=== PATIENT | male | born 1980 | race Caucasian/White ===

== ENCOUNTER 2021-09-27 16:16 | Inpatient (IN) | payer MEDICAID ==
[~2021-09-27] VITALS: Ht 167.6 cm; Wt 117.7 kg
[~2021-09-27 16:16] MED LIST: DIVA-112 PO; DSS100 PO; FISH1 PO; HALO10TA20 PO; LACT30L PO; LEVO50 PO; LITH300C3 PO; OLAN10TA74 PO; OMEP20 PO; OXCA300T57 PO
[2021-09-27] MEDS ORDERED: LITH300T29 PO (17:42)
[2021-09-27] MEDS ORDERED: OLAN10TA26 PO (17:42)
[2021-09-27] MEDS ORDERED: METF-1211 PO (17:42)
[2021-09-27] MEDS ORDERED: LEVO125 PO (17:42)
[2021-09-27] MEDS ORDERED: OXCA300T57 PO (17:42)
[2021-09-27] MEDS ORDERED: BUSP10TA23 PO (17:42)
[2021-09-27] MEDS ORDERED: FENO48TA20 PO (17:42)
[2021-09-27] MEDS ORDERED: DOCU-270 PO (17:48)
[2021-09-27 21:16] VITALS: BP 132/90
[2021-09-27] MEDS ORDERED: PNEUMOCOCCAL VACCINE POLYVALENT 0.5 ML VIAL [PPSV23] IM. ONE (22:00)
[2021-09-27] MEDS ORDERED: INFLUENZA VIRUS VACCINE QVS 2021-22 (6MO+)/PF 60 MCG/0.5 ML SYRINGE IM. ONE (22:00)
[2021-09-28 05:56] VITALS: BP 126/80
[2021-09-28] MEDS: LORazepam 2 MG TABLET PO PRN ×3 (08:16→20:30)
[2021-09-28] MEDS: HALOPERIDOL 5 MG TABLET PO PRN ×2 (08:16→16:28)
[2021-09-28 09:34] VITALS: BP 135/65
[2021-09-28] MEDS: LITHIUM CARBONATE 300 MG CAPSULE PO SCH ×2 (11:14→16:27)
[2021-09-28] MEDS: DIVALPROEX SODIUM 500 MG DR TABLET PO SCH ×2 (11:14→16:27)
[2021-09-28] MEDS ORDERED: HALOPERIDOL LACTATE 5 MG/ML VIAL ONE (11:26)
[2021-09-28] MEDS ORDERED: LORazepam 2 MG/ML VIAL ONE (11:26)
[2021-09-28] MEDS ORDERED: DiphenhydrAMINE HCL 50 MG/ML VIAL ONE (11:26)
[2021-09-28] MEDS ORDERED: HALOPERIDOL LACTATE 5 MG/ML VIAL IM ONE (11:30)
[2021-09-28] MEDS ORDERED: DiphenhydrAMINE HCL 50 MG/ML VIAL IM ONE (11:30)
[2021-09-28] MEDS ORDERED: LORazepam 2 MG/ML VIAL IM ONE (11:30)
[2021-09-28 16:29] VITALS: BP 124/69
[2021-09-28] MEDS ORDERED: CloNIDine HCL 0.1 MG TABLET PO PRN (18:30)
[2021-09-28] MEDS ORDERED: DOCUSATE SODIUM 100 MG CAPSULE PO PRN (18:30)
[2021-09-28] MEDS ORDERED: PETROLATUM,WHITE 28 GM JELLY TP PRN (18:30)
[2021-09-28] MEDS ORDERED: NICOTINE 14 MG/24 HOUR PATCH TD PRN (18:30)
[2021-09-28] MEDS ORDERED: MAG HYDROX/AL HYDROX/SIMETH ES 30 ML SUSPENSION UDCUP PO PRN (18:30)
[2021-09-28] MEDS ORDERED: GuaiFENesin/D-METHORPHAN [SUGAR-FREE] 200-20MG/10 ML SYRUP UDCUP PO PRN (18:30)
[2021-09-28] MEDS ORDERED: MAGNESIUM HYDROXIDE SUSPENSION 30 ML UDCUP PO PRN (18:30)
[2021-09-28] MEDS ORDERED: ONDANSETRON HCL 4 MG TABLET PO PRN (18:30)
[2021-09-28] MEDS ORDERED: ACETAMINOPHEN 325 MG TABLET PO PRN (18:30)
[2021-09-28] MEDS ORDERED: LOPERAMIDE HCL 2 MG CAPSULE PO PRN (18:30)
[2021-09-28] MEDS ORDERED: ALBUTEROL SULFATE HFA 90 MCG/PUFF 8 GM INHALER IH PRN (18:30)
[2021-09-28] MEDS ORDERED: IBUPROFEN 400 MG TABLET PO PRN (18:30)
[2021-09-28] MEDS: LACTULOSE 20 GM/30 ML SOLUTION UDCUP PO SCH (20:18)
[2021-09-28] MEDS: HALOPERIDOL 5 MG TABLET PO SCH (20:18)
[2021-09-28] MEDS: ZOLPIDEM TARTRATE 10 MG TABLET PO PRN (20:19)
[2021-09-29 04:42] VITALS: BP 139/77
[2021-09-29] MEDS: LEVOTHYROXINE SODIUM 125 MCG TABLET PO SCH (06:30)
[2021-09-29] MEDS: MetFORMIN HCL 500 MG TABLET PO SCH ×2 (07:05→16:23)
[2021-09-29 08:09] LABS: BASOPHILS % (AUTO) 0.4 % (0.0-2.0); EOSINOPHILS % (AUTO) 2.7 % (1.0-6.0); HEMATOCRIT 38.2 % (41-53); HEMOGLOBIN 12.9 g/dL (13.5-17.5); LYMPHOCYTES # (AUTO) 1.7 K/uL (1.0-4.8); LYMPHOCYTES % (AUTO) 23.7 % (22.0-44.0); MEAN CORPUSCULAR HEMOGLOBIN 29.4 pg (26.0-34.0); MEAN CORPUSCULAR HGB CONC 33.9 G/dL (31.0-37.0); MEAN CORPUSCULAR VOLUME 87 fL (80-100); MONOCYTES # (AUTO) 0.3 K/uL (0.1-1.0); MONOCYTES % (AUTO) 4.7 % (2.0-9.0); NEUTROPHILS # (AUTO) 4.9 K/uL (1.8-7.7); NEUTROPHILS % (AUTO) 68.5 % (40.0-70.0); PLATELET COUNT (AUTO) 224 K/uL (150-450); RED BLOOD CELL COUNT(AUTO) 4.41 MIL/uL (4.50-5.90)
[2021-09-29 08:17] LABS: HEMOGLOBIN A1C 7.4 % (3.8-5.6)
[2021-09-29 08:26] VITALS: BP 137/95
[2021-09-29 08:29] LABS: ALANINE AMINOTRANSFERASE 40 U/L (12-78); ALBUMIN 3.3 g/dL (3.4-5.0); ALKALINE PHOSPHATASE 80 U/L (46-116); ANION GAP 8 mmol/L (8-16); ASPARTATE AMINOTRANSFERASE 29 U/L (15-37); BILIRUBIN,TOTAL 0.4 mg/dL (0.1-1.0); CALCIUM, TOTAL 9.1 mg/dL (8.8-10.5); CARBON DIOXIDE 29 mmol/L (22-29); CHLORIDE 102 mmol/L (98-107); CHOL/HDL RATIO 6.3 (4.2-7.3); CHOLESTEROL 171 mg/dL (131-200); CREATININE 0.81 mg/dL (0.60-1.30); GLOMERULAR FILTR. RATE CALC > 60 mL/min (>60); GLUCOSE,RANDOM 186 mg/dL (70-110); HDL CHOLESTEROL 27 mg/dL (40-60); LDL CHOL (CALC.) 87 mg/dL (0-130); POTASSIUM 4.1 mmol/L (3.5-5.1); SODIUM SERUM 139 mmol/L (136-145); TOTAL PROTEIN, SERUM 7.5 g/dL (6.4-8.2); TRIGLYCERIDES 283 mg/dL (15-150); UREA NITROGEN, BLOOD 13 mg/dL (7-18)
[2021-09-29] MEDS: DIVALPROEX SODIUM 500 MG DR TABLET PO SCH ×2 (09:02→16:23)
[2021-09-29] MEDS: FENOFIBRATE 48 MG TABLET PO SCH (09:02)
[2021-09-29] MEDS: LITHIUM CARBONATE 300 MG CAPSULE PO SCH ×2 (09:02→16:22)
[2021-09-29] MEDS: DOCUSATE SODIUM 100 MG CAPSULE PO SCH ×2 (09:02→16:22)
[2021-09-29] MEDS: OMEPRAZOLE 20 MG CAPSULE PO SCH (09:02)
[2021-09-29] MEDS: LACTULOSE 20 GM/30 ML SOLUTION UDCUP PO SCH ×4 (09:03→20:02)
[2021-09-29 16:14] VITALS: BP 127/72
[2021-09-29] MEDS: HALOPERIDOL 5 MG TABLET PO SCH (20:01)
[2021-09-29] MEDS: ZOLPIDEM TARTRATE 10 MG TABLET PO PRN (20:05)
[2021-09-30 05:28] VITALS: BP 129/69
[2021-09-30] MEDS: MetFORMIN HCL 500 MG TABLET PO SCH ×2 (06:28→16:34)
[2021-09-30] MEDS: LEVOTHYROXINE SODIUM 125 MCG TABLET PO SCH (06:53)
[2021-09-30] MEDS: OMEPRAZOLE 20 MG CAPSULE PO SCH (08:20)
[2021-09-30] MEDS: FENOFIBRATE 48 MG TABLET PO SCH (08:20)
[2021-09-30] MEDS: DOCUSATE SODIUM 100 MG CAPSULE PO SCH ×2 (08:20→16:34)
[2021-09-30] MEDS: LITHIUM CARBONATE 300 MG CAPSULE PO SCH ×2 (08:20→16:34)
[2021-09-30] MEDS: LACTULOSE 20 GM/30 ML SOLUTION UDCUP PO SCH ×4 (08:21→20:04)
[2021-09-30] MEDS: LORazepam 2 MG TABLET PO PRN ×2 (08:21→16:34)
[2021-09-30] MEDS: DIVALPROEX SODIUM 500 MG DR TABLET PO SCH ×2 (08:21→16:34)
[2021-09-30 08:44] VITALS: BP 132/86
[2021-09-30 16:05] VITALS: BP 114/75
[2021-09-30] MEDS: HALOPERIDOL 5 MG TABLET PO PRN (16:35)
[2021-09-30] MEDS: HALOPERIDOL 5 MG TABLET PO SCH (20:04)
[2021-09-30] MEDS: ZOLPIDEM TARTRATE 10 MG TABLET PO PRN (20:04)
[2021-10-01] MEDS: LEVOTHYROXINE SODIUM 125 MCG TABLET PO SCH (06:12)
[2021-10-01] MEDS: MetFORMIN HCL 500 MG TABLET PO SCH ×2 (06:12→16:45)
[2021-10-01 06:33] VITALS: BP 116/58
[2021-10-01 07:28] LABS: LITHIUM 0.48 mmol/L (0.60-1.20)
[2021-10-01] MEDS: LORazepam 2 MG TABLET PO PRN (09:10)
[2021-10-01] MEDS: OMEPRAZOLE 20 MG CAPSULE PO SCH (09:10)
[2021-10-01] MEDS: DIVALPROEX SODIUM 500 MG DR TABLET PO SCH ×2 (09:10→16:45)
[2021-10-01] MEDS: LACTULOSE 20 GM/30 ML SOLUTION UDCUP PO SCH ×4 (09:10→21:46)
[2021-10-01] MEDS: LITHIUM CARBONATE 300 MG CAPSULE PO SCH ×2 (09:10→16:45)
[2021-10-01] MEDS: FENOFIBRATE 48 MG TABLET PO SCH (09:10)
[2021-10-01] MEDS: HALOPERIDOL 5 MG TABLET PO PRN (09:10)
[2021-10-01] MEDS: DOCUSATE SODIUM 100 MG CAPSULE PO SCH ×2 (09:10→16:44)
[2021-10-01 09:22] VITALS: BP 115/72
[2021-10-01 16:20] VITALS: BP 115/68
[2021-10-01] MEDS: HALOPERIDOL 5 MG TABLET PO SCH (21:46)
[2021-10-01] MEDS: ZOLPIDEM TARTRATE 10 MG TABLET PO PRN (23:48)
[2021-10-02 06:12] VITALS: BP 124/74
[2021-10-02] MEDS: LEVOTHYROXINE SODIUM 125 MCG TABLET PO SCH (06:16)
[2021-10-02] MEDS: MetFORMIN HCL 500 MG TABLET PO SCH ×2 (06:16→16:24)
[2021-10-02 08:15] VITALS: BP 123/72
[2021-10-02] MEDS: LITHIUM CARBONATE 300 MG CAPSULE PO SCH ×2 (08:26→16:24)
[2021-10-02] MEDS: FENOFIBRATE 48 MG TABLET PO SCH (08:26)
[2021-10-02] MEDS: OMEPRAZOLE 20 MG CAPSULE PO SCH (08:26)
[2021-10-02] MEDS: DOCUSATE SODIUM 100 MG CAPSULE PO SCH ×2 (08:26→16:38)
[2021-10-02] MEDS: DIVALPROEX SODIUM 500 MG DR TABLET PO SCH ×2 (08:26→16:37)
[2021-10-02] MEDS: LACTULOSE 20 GM/30 ML SOLUTION UDCUP PO SCH ×4 (08:26→20:38)
[2021-10-02] MEDS: LORazepam 2 MG TABLET PO PRN ×2 (08:28→18:30)
[2021-10-02] MEDS: HALOPERIDOL 5 MG TABLET PO PRN ×2 (08:29→18:30)
[2021-10-02 16:23] VITALS: BP 121/80
[2021-10-02] MEDS: HALOPERIDOL 5 MG TABLET PO SCH (20:37)
[2021-10-03 06:02] VITALS: BP 105/61
[2021-10-03] MEDS: LEVOTHYROXINE SODIUM 125 MCG TABLET PO SCH (06:34)
[2021-10-03] MEDS: MetFORMIN HCL 500 MG TABLET PO SCH ×2 (06:35→16:53)
[2021-10-03] MEDS: DOCUSATE SODIUM 100 MG CAPSULE PO SCH ×2 (08:08→16:53)
[2021-10-03] MEDS: FENOFIBRATE 48 MG TABLET PO SCH (08:08)
[2021-10-03] MEDS: LITHIUM CARBONATE 300 MG CAPSULE PO SCH ×2 (08:08→16:53)
[2021-10-03] MEDS: OMEPRAZOLE 20 MG CAPSULE PO SCH (08:08)
[2021-10-03] MEDS: DIVALPROEX SODIUM 500 MG DR TABLET PO SCH ×2 (08:08→16:53)
[2021-10-03] MEDS: LACTULOSE 20 GM/30 ML SOLUTION UDCUP PO SCH ×2 (08:09→08:24)
[2021-10-03] MEDS: LORazepam 2 MG TABLET PO PRN ×2 (08:24→19:01)
[2021-10-03] MEDS ORDERED: LACTULOSE 20 GM/30 ML SOLUTION UDCUP PO PRN (08:45)
[2021-10-03 09:03] VITALS: BP 122/63
[2021-10-03] MEDS: HALOPERIDOL 5 MG TABLET PO PRN ×2 (10:24→19:01)
[2021-10-03 16:09] VITALS: BP 120/84
[2021-10-03] MEDS: HALOPERIDOL 5 MG TABLET PO SCH (20:46)
[2021-10-04] MEDS: ZOLPIDEM TARTRATE 10 MG TABLET PO PRN ×2 (00:21→20:20)
[2021-10-04 00:22] VITALS: BP 112/62
[2021-10-04] MEDS: MetFORMIN HCL 500 MG TABLET PO SCH ×2 (06:33→16:29)
[2021-10-04] MEDS: LEVOTHYROXINE SODIUM 125 MCG TABLET PO SCH (06:33)
[2021-10-04 07:15] LABS: ANION GAP 2 mmol/L (8-16); CALCIUM, TOTAL 9.4 mg/dL (8.8-10.5); CARBON DIOXIDE 33 mmol/L (22-29); CHLORIDE 105 mmol/L (98-107); CREATININE 0.94 mg/dL (0.60-1.30); GLOMERULAR FILTR. RATE CALC > 60 mL/min (>60); GLUCOSE,RANDOM 128 mg/dL (70-110); POTASSIUM 4.2 mmol/L (3.5-5.1); SODIUM SERUM 140 mmol/L (136-145); UREA NITROGEN, BLOOD 9 mg/dL (7-18)
[2021-10-04] MEDS: HALOPERIDOL 5 MG TABLET PO PRN ×2 (08:00→16:30)
[2021-10-04] MEDS: LORazepam 2 MG TABLET PO PRN ×2 (08:00→16:30)
[2021-10-04 08:18] LABS: GLUCOMETER DEV NAME(LOC) BV3N.; GLUCOSE,POINT OF CARE 150 MG/DL (70-110)
[2021-10-04] MEDS: DIVALPROEX SODIUM 500 MG DR TABLET PO SCH ×2 (08:36→16:29)
[2021-10-04] MEDS: OMEPRAZOLE 20 MG CAPSULE PO SCH (08:36)
[2021-10-04] MEDS: DOCUSATE SODIUM 100 MG CAPSULE PO SCH ×2 (08:36→16:29)
[2021-10-04] MEDS: FENOFIBRATE 48 MG TABLET PO SCH (08:36)
[2021-10-04] MEDS: LITHIUM CARBONATE 300 MG CAPSULE PO SCH ×2 (08:36→16:29)
[2021-10-04 09:42] VITALS: BP 105/64
[2021-10-04 16:08] VITALS: BP 124/72
[2021-10-04] MEDS: HALOPERIDOL 5 MG TABLET PO SCH (20:20)
[2021-10-05 00:31] VITALS: BP 120/68
[2021-10-05] MEDS: MetFORMIN HCL 500 MG TABLET PO SCH ×2 (06:37→16:40)
[2021-10-05] MEDS: LEVOTHYROXINE SODIUM 125 MCG TABLET PO SCH (06:37)
[2021-10-05] MEDS: DOCUSATE SODIUM 100 MG CAPSULE PO SCH ×2 (08:40→16:39)
[2021-10-05] MEDS: FENOFIBRATE 48 MG TABLET PO SCH (08:40)
[2021-10-05] MEDS: DIVALPROEX SODIUM 500 MG DR TABLET PO SCH ×2 (08:40→16:40)
[2021-10-05] MEDS: LITHIUM CARBONATE 300 MG CAPSULE PO SCH ×2 (08:40→16:40)
[2021-10-05] MEDS: OMEPRAZOLE 20 MG CAPSULE PO SCH (08:40)
[2021-10-05] MEDS: HALOPERIDOL 5 MG TABLET PO PRN ×3 (08:45→18:00)
[2021-10-05 09:18] VITALS: BP 122/75
[2021-10-05] MEDS: LORazepam 2 MG TABLET PO PRN ×2 (13:51→17:59)
[2021-10-05 16:34] VITALS: BP 118/71
[2021-10-05] MEDS: HALOPERIDOL 5 MG TABLET PO SCH (20:38)
[2021-10-05] MEDS: ZOLPIDEM TARTRATE 10 MG TABLET PO PRN (20:39)
[2021-10-06] MEDS: MetFORMIN HCL 500 MG TABLET PO SCH (06:22)
[2021-10-06] MEDS: LEVOTHYROXINE SODIUM 125 MCG TABLET PO SCH (06:22)
[2021-10-06 06:28] VITALS: BP 114/77
[2021-10-06 08:11] VITALS: BP 127/66
[2021-10-06] MEDS: DIVALPROEX SODIUM 500 MG DR TABLET PO SCH (08:13)
[2021-10-06] MEDS: FENOFIBRATE 48 MG TABLET PO SCH (08:13)
[2021-10-06] MEDS: DOCUSATE SODIUM 100 MG CAPSULE PO SCH (08:13)
[2021-10-06] MEDS: LITHIUM CARBONATE 300 MG CAPSULE PO SCH (08:13)
[2021-10-06] MEDS: OMEPRAZOLE 20 MG CAPSULE PO SCH (08:13)
[2021-10-06] MEDS: LORazepam 2 MG TABLET PO PRN (08:14)
[2021-10-06] MEDS ORDERED: LITH300C3 PO (11:10)
== END 2021-10-06 13:00 | disposition home or self-care (01) | DRG 750 ==
LOC: B3A 20:44
PROVIDERS: ADMIT Psychiatry & Neurology Child & Adolescent Psychiatry; ATTEND Psychiatry & Neurology Child & Adolescent Psychiatry
DX: F20.0 Paranoid schizophrenia (principal); E11.9 Type 2 diabetes mellitus without complications; E03.9 Hypothyroidism, unspecified; E66.9 Obesity, unspecified; E78.5 Hyperlipidemia, unspecified; K21.9 Gastro-esophageal reflux disease without esophagitis; K59.00 Constipation, unspecified; F41.9 Anxiety disorder, unspecified; Z68.41 Body mass index [BMI] 40.0-44.9, adult; Z79.899 Other long term (current) drug therapy; Z88.8 Allergy status to other drugs, medicaments and biological substances
CPT/HCPCS: 80048; 80053; 80061; 80164; 80178; 82962; 83036; 84439; 84443; 85025; 87081; 90686; 90732; J1200; J1630; J2060

== ENCOUNTER 2023-09-14 13:32 | Emergency (ER) | payer MEDICARE, OTHER ==
[~2023-09-14] VITALS: Ht 167.6 cm; Wt 113.6 kg
[~2023-09-14 13:32] MED LIST changes: +DOCU-385 PO; -DSS100 PO; +FENO48TA12 PO; -FISH1 PO; -LACT30L PO; +LEVO125 PO; -LEVO50 PO; +METF-1211 PO; -OLAN10TA74 PO; -OMEP20 PO; -OXCA300T57 PO
[2023-09-14 13:36] VITALS: TEMP 98.6
[2023-09-14 14:09] LABS: BASOPHILS % (AUTO) 0.5 % (0.0-2.0); EOSINOPHILS % (AUTO) 1.5 % (1.0-6.0); HEMATOCRIT 34.2 % (41-53); HEMOGLOBIN 11.9 g/dL (13.5-17.5); LYMPHOCYTES # (AUTO) 1.3 K/uL (1.0-4.8); LYMPHOCYTES % (AUTO) 19.8 % (22.0-44.0); MEAN CORPUSCULAR HEMOGLOBIN 30.2 pg (26.0-34.0); MEAN CORPUSCULAR HGB CONC 34.7 G/dL (31.0-37.0); MEAN CORPUSCULAR VOLUME 87 fL (80-100); MONOCYTES # (AUTO) 0.2 K/uL (0.1-1.0); MONOCYTES % (AUTO) 3.4 % (2.0-9.0); NEUTROPHILS % (AUTO) 74.8 % (40.0-70.0); PLATELET COUNT (AUTO) 188 K/uL (150-450); RED BLOOD CELL COUNT(AUTO) 3.93 MIL/uL (4.50-5.90); RED CELL DISTRIBUTION WIDTH 13.9 % (11.5-14.5); WHITE BLOOD COUNT (AUTO) 6.7 K/uL (4.5-11.0)
[2023-09-14 14:18] LABS: ANION GAP 10 mmol/L (8-16); CALCIUM, TOTAL 8.3 mg/dL (8.8-10.5); CARBON DIOXIDE 25 mmol/L (22-29); CHLORIDE 102 mmol/L (98-107); CREATININE 0.91 mg/dL (0.60-1.30); GLOMERULAR FILTR. RATE CALC > 60 mL/min (>60); GLUCOSE,RANDOM 208 mg/dL (70-110); POTASSIUM 3.8 mmol/L (3.5-5.1); SODIUM SERUM 137 mmol/L (136-145); UREA NITROGEN, BLOOD 11 mg/dL (7-18)
[2023-09-14 14:19] LABS: ALCOHOL, BLOOD (SERUM) < 3 mg/dL (0-10)
[2023-09-14 14:23] LABS: ALANINE AMINOTRANSFERASE 34 U/L (12-78); ALBUMIN 3.1 g/dL (3.4-5.0); ALKALINE PHOSPHATASE 75 U/L (46-116); ASPARTATE AMINOTRANSFERASE 21 U/L (15-37); BILIRUBIN,TOTAL 0.3 mg/dL (0.1-1.0); TOTAL PROTEIN, SERUM 6.9 g/dL (6.4-8.2)
[2023-09-14] MEDS ORDERED: LORazepam 1 MG TABLET PO ONE (15:00)
[2023-09-14] MEDS ORDERED: QUET300T19 PO (15:18)
[2023-09-14] MEDS ORDERED: OXCA300T28 PO (15:18)
[2023-09-14] MEDS ORDERED: PALI234D IM (15:18)
[2023-09-14] MEDS ORDERED: DIVA500T53 PO (15:18)
[2023-09-14] MEDS ORDERED: METF-445 PO (15:18)
[2023-09-14] MEDS ORDERED: LEVO100 PO (15:18)
[2023-09-14] MEDS ORDERED: LITH300CRT PO (15:19)
[2023-09-14 15:25] LABS: COVID AG,FIA SOURCE NASAL SWAB
[2023-09-14 15:47] LABS: SARS-COV2 (COVID) ANTIGEN,FIA Negative (Negative)
[2023-09-14 16:20] VITALS: BP 132/76; PULSE 77; RESP 18
== END 2023-09-14 16:34 | disposition short-term general hospital (02) ==
LOC: EMS 13:32
DX: F20.9 Schizophrenia, unspecified (principal); F41.9 Anxiety disorder, unspecified; F31.9 Bipolar disorder, unspecified; Z88.8 Allergy status to other drugs, medicaments and biological substances; Z20.822 Contact with and (suspected) exposure to COVID-19
CPT/HCPCS: 99283; 87426; 80053; 85025; G0480

== ENCOUNTER 2025-07-03 14:00 | Emergency (ER) | payer MEDICARE, OTHER ==
[~2025-07-03] VITALS: Ht 167.6 cm; Wt 104.5 kg
[~2025-07-03 14:00] MED LIST changes: -DIVA-112 PO; +DIVA-153 PO; -DOCU-385 PO; -FENO48TA12 PO; -HALO10TA20 PO; +LEVO100 PO; -LEVO125 PO; -LITH300C3 PO; +LITH300T45 PO; -METF-1211 PO; +METF-445 PO; +OXCA300T28 PO; +QUET300T19 PO
[2025-07-03 14:08] VITALS: TEMP 98.2
[2025-07-03 14:34] LABS: PLATELET COUNT (AUTO) 212 K/uL (150-450); RED BLOOD CELL COUNT(AUTO) 3.88 MIL/uL (4.50-5.90); RED CELL DISTRIBUTION WIDTH 13.6 % (11.5-14.5); WHITE BLOOD COUNT (AUTO) 6.9 K/uL (4.5-11.0)
[2025-07-03 14:43] LABS: CALCIUM, TOTAL 8.5 mg/dL (8.8-10.5); CREATININE 0.86 mg/dL (0.60-1.30); GLOMERULAR FILTR. RATE CALC > 60 mL/min (>60); GLUCOSE,RANDOM 146 mg/dL (70-110); SODIUM SERUM 136 mmol/L (136-145); UREA NITROGEN, BLOOD 16 mg/dL (7-18)
[2025-07-03 16:58] VITALS: BP 116/84; PULSE 84; RESP 20; O2SAT 99
== END 2025-07-03 17:00 | disposition home or self-care (01) ==
LOC: EMS 14:28
DX: F20.0 Paranoid schizophrenia (principal); F41.9 Anxiety disorder, unspecified; E11.9 Type 2 diabetes mellitus without complications; F31.9 Bipolar disorder, unspecified; Z88.8 Allergy status to other drugs, medicaments and biological substances; Z79.899 Other long term (current) drug therapy
CPT/HCPCS: 99284; 80048; 80178; 85025; 36415; G0480